=== PATIENT | female | born 1970 ===

== ENCOUNTER 2018-06-28 19:47 | Outpatient (REF) | payer MEDICAID, SELFPAY ==
[2018-06-28 20:36] LABS: Anion Gap 6.7 mmol/L (3-11); BUN 18 mg/dL (7-18); CO2 30.3 mmol/L (21.0-32.0); CREATININE 0.99 mg/dL (0.55-1.02); Calcium 8.4 mg/dL (8.5-10.1); Chloride 99 mmol/L (98-107); Glucose 338 mg/dL (70-100); Potassium 4.1 mmol/L (3.5-5.1); Sodium 136 mmol/L (136-145)
== END 2018-06-28 20:07 ==
LOC: LBN 19:47
PROVIDERS: Visit Provider Family Medicine
DX: E11.9 Type 2 diabetes mellitus without complications (principal)
CPT/HCPCS: 80048; 87077; 87070; 87205

== ENCOUNTER 2018-07-13 19:26 | Emergency (ER) | payer MEDICAID, SELFPAY ==
[2018-07-13 19:31] VITALS: BP 122/84; PULSE 91; RESP 16; TEMP 36.9; O2SAT 92
[2018-07-13 20:49] LABS: Abs Immature Grans 0.03 k/cumm (0.0-0.09); Absolute Basophil Count 0.02 k/cumm (0.0-0.2); Absolute Eosinophil Count 0.43 k/cumm (0.0-0.7); Absolute Lymphocyte Count 1.93 k/cumm (1.2-3.4); Absolute Monocyte Count 0.72 k/cumm (0.11-0.7); Absolute Neutrophil Count 7.62 k/cumm (1.2-6.7); Basophils % 0.2; HCT 45.8 % (36.0-46.0); HGB 14.5 g/dL (12.0-15.5); Immature Grans % 0.3; Mean Corp. HGB Concentration 31.7 g/dL (32.0-36.0); Mean Corpuscular Volume 91.6 fL (80-95); Mean Platelet Volume 9.9 fL (8.0-11.0); Monocytes % 6.7; Neutrophils % 70.8; Platelet Count 283 x1000/uL (130-400); RBC Distribution Width 16.4 % (11.7-14.6); White Blood Cell Count 10.75 k/cumm (4.4-10.8)
--- NOTE | 2018-07-13 21:00 | W.ED.GENAD ---
Discharge Plan Disposition Patient Disposition: HOME Condition: Good Discharge Details Chief Complaint: Cellulitis Clinical Impression: Cellulitis of leg, right Primary Care Provider: Zenaida Garcia ED Provider: Jacobo Sanchez Home Meds and New Rx's Prescriptions: New clindamycin HCl 150 mg capsule 450 mg PO TID 10 Days Qty: 90 RF: 0 No Action potassium chloride [Klor-Con M20] 20 mEq Tablet,Er Particles/Crystals 20 meq PO TID RF: 0 torsemide 100 mg Tablet 100 mg PO BID RF: 0 spironolactone 50 mg Tablet 50 mg PO BID RF: 0 Discharge Instructions Instructions: Cellulitis (ED) Additional Instructions: Return tomorrow afternoon for reassessment of your infection as you may need admitted at that time. Return immediately to the emergency department for any significant worsening of symptoms, rapid progression of your infection, high persistent fevers. Referrals: [facility] Emergency Dept. [Outside] - 07/14/18 2:00 pm (Return to the emergency department tomorrow afternoon for reassessment) Medical Decision Making <Jacobo Sanchez NP - Last Filed: 07/13/18 22:17> Patient presenting to the emergency department for chief complaint of redness and swelling to right anterior mendez/ankle. She states that this started occurring yesterday and home [facility] the wound this morning which is seem to worsen. Patient has bilateral heel ulcerations due to morbid obesity. Patient was placed upon Bactrim for heel ulcerations approximately 7 days ago by podiatry for wound ulcerations. Patient states subjective chills yesterday but no fever, and states no other symptoms other than her chronic conditions. Patient states mild to moderate discomfort to right anterior mendez. Physical exam shows anterior lower leg erythema, warmth, tenderness. There is no weeping or oozing, no well-defined borders, no involvement of chronic wound heel ulceration that it appears trans-locating to anterior mendez. Patient otherwise appears well and in no signs of distress. This appears to be a cellulitic area to right anterior mendez. Patient also has no significant calf or inner thigh tenderness to suggest DVT. Patient was sent in by primary care provider who was concerned for possible failure of outpatient antibiotics given the patient was on Bactrim and developed this rash. They requested that patient have blood work and blood cultures drawn along with IV antibiotics. With assessment and looking and reviewing patient's medical history I do feel that labs are warranted along with blood cultures and IV antibiotics. Given patient's penicillin allergy and that patient was initially placed upon Bactrim which does not have full coverage for strep I do feel that clindamycin would be better choice as current cellulitis does not appear consistent with MRSA. Review of labs show no leukocytosis, no bandemia, and CMP at baseline for patient's chronic kidney disease and diabetes mellitus. Did call and speak with on-call doctor at patient's primary care office Dr. Clarke and she expressed concern for patient to be discharged which was my recommendation given no bed availability at our facility, patient not having any signs of systemic illness and being placed up on Bactrim which I feel is not the appropriate antibiotic, no leukocytosis. While I fully understand her concern given the patient had been on Bactrim for extended period of time and had developed cellulitis given above-mentioned findings I do feel that it is appropriate for be patient to be discharged home after receiving IV dose of clindamycin and started on clindamycin 450 mg every 8 hours. Patient also states that she does not want to be transferred to another facility as we have no current bed availability. We did agree upon plan of care for patient to return to emergency department tomorrow afternoon for reassessment to ensure that patient is not worsening and does not need admission at that time. Patient was agreeable to this plan as well. Patient was encouraged to take pictures of the wound this evening to be able to show emergency department provider tomorrow. After discussion of diagnosis and plan of care patient has no further needs, questions, or concerns and states clear understanding to return to the emergency department for any worsening symptoms. Medical Records Medical records reviewed: Yes I reviewed the patient's medical records. Lab Data Lab results reviewed: Yes I reviewed the patient's lab results. <Gerardo Segundo DO - Last Filed: 07/13/18 21:46> I was asked to come and assess the patient with my colleague Leonardo Sanchez for evaluation of cellulitis. This is a 47-year-old female who presents with 1 day history of cellulitis in her right lower extremity. She has a history of chronic ulcer, on her right foot because of this she takes regular Bactrim. The cellulitis is developed in spite of this. The patient was sent to the emergency department by her practitioner for further evaluation. On examination patient does have cellulitis in the right lower extremity there is no evidence of circumferential component. There is a line that was placed by practitioner prior to her arrival, cellulitis does not appear to extend significantly beyond this line. The patient states that it actually appears somewhat better than when she had initially assessed earlier today. Evaluation of the patient's laboratory workup demonstrates no evidence of leukocytosis. No bandemia, electrolytes are all within normal limits. Clinically the patient appears well, in no acute distress. Vital signs demonstrate normal vital signs with no evidence of fever, tachycardia, or hypotension. No evidence of SIRS or sepsis. Physical exam demonstrates evidence of erythema but no evidence of abscess, fluctuance, or significant firmness. No subcutaneous crepitus is noted. Pain is not out of proportion. No clinical signs or symptoms significant for a severe systemic infection, necrotizing fasciitis, or compartment syndrome. On my evaluation of the patient patient does appear clinically well. Because of the patient's chronic Bactrim use, I do feel that she was not being adequately treated for strep coverage. With no current clinic evidence of abscess, I think that strep is more likely organism over MRSA. At this time on our clinical evaluation it would appear that the patient's failure of outpatient therapy is secondary to improper antibiotic coverage rather than actual resistance to antibiotics and the appropriate antibiotic setting. We will give 1 dose of IV clindamycin here. We discussed with the patient admission versus discharge, currently there are no beds available in the hospital, the patient will be required to be transferred for admission for continued IV antibiotics. After discussion with the patient, the patient clearly states that she does not want to be transferred, and she would rather just be treated at home. I do feel that this is appropriate in the current clinical scenario with normal vital signs, normal laboratory workup, no signs of systemic infection, and a lack of appropriate antibiotic coverage for her current ailment. We will give 1 dose of clindamycin here, a prescription for oral clindamycin to go home with, and strict instructions for return in the emergency department tomorrow morning for reevaluation. At that time if the patient's cellulitis does not show any improvement, or she shows any systemic signs of infection we will re-discussed and readdress the options of potential need for admission and potentially transfer if it does appear clinically indicated at that time. At this time there appears to be no clinical indication for admission based on her current labs, vital signs, and current clinical picture at this time. I have extensively reviewed the treatment plan and discharge instructions with the patient and their family. I have addressed all patient concerns at this time. The patient and family was made aware of what symptoms to monitor for that would warrant a return to the emergency department. Discussed the plan with the patient and family, they demonstrate verbal understanding and agreement with our assessment and plan at this time. HPI <Jacobo Sanchez NP - Last Filed: 07/13/18 22:17> General Mode of arrival: wheelchair. Date/Time Provider Initiated Documentation: 07/13/18 19:34. Limitations to Documentation: no limitations. Information obtained by: patient, family, RN notes reviewed and old records reviewed. History of Present Illness 47 year old F presents to the emergency department with the chief complaint of Pain swelling redness right anterior mendez, described as moderate, with intensity rated at 6. Quality is described as dull, and is localized to the lower extremity. Patient reports no radiation. Patient started experiencing this day(s) (1) and it has been constant. No relieving factors improve symptom(s), No exacerbating factors reported . Patient notes no other symptoms.. Patient did receive the following treatments prior to arrival, none Related Data Home Medications Medication Instructions Recorded Confirmed clindamycin HCl 450 mg PO TID 10 Days #90 cap 07/13/18 potassium chloride [Klor-Con M20] 20 meq PO TID 07/13/18 07/13/18 spironolactone 50 mg PO BID 07/13/18 07/13/18 torsemide 100 mg PO BID 07/13/18 07/13/18 Previous Rx's Medication Instructions Recorded clindamycin HCl 450 mg PO TID 10 Days #90 cap 07/13/18 Allergies Allergy/AdvReac Type Severity Reaction Status Date / Time bupropion [From Wellbutrin] Allergy Unverified 07/13/18 19:39 Penicillins Allergy Unverified 07/13/18 19:39 tolnaftate Allergy Unverified 07/13/18 19:49 General Stated Complaint: Cellulitis VERONICA: 4 Review of Systems <Jacobo Sanchez NP - Last Filed: 07/13/18 22:17> Constitutional Reports chills, Denies fever(s), Reports headache(s) (yesterday) and Denies night sweats ENT Reports headache(s) (yesterday) Cardiovascular Denies chest pain, Reports leg ulcers, Reports leg edema and Denies dyspnea Respiratory Denies cough and Denies dyspnea Integumentary/Breasts Reports as per HPI and Reports erythema Neurologic Reports headache(s) (yesterday) Exam <Jacobo Sanchez NP - Last Filed: 07/13/18 22:17> Const General: cooperative, comfortable, no acute distress and not diaphoretic Nutritional Appearance: obese morbidly obese Orientation: alert, awake and oriented x3 Limitations: mental status not altered Resp Effort & Inspection: normal respiratory effort and able to speak in complete sentences Auscultation: clear to auscultation bilaterally Cardio Rate: regular rate Rhythm: regular rhythm Heart Sounds: S1 normal and S2 normal Extrem Right lower extremity: normal capillary refill, edema Details: non-pitting, lower leg Details: erythema Location: of the distal lower leg Location: anteriorly and tenderness Location: not of the posterior calf and foot Details: vascular exam Details: dorsalis pedis pulse present, posterior tibial pulse present and normal capillary refill and other (Heel ulceration with appearance of well-healing and no significant surrounding erythema) Left lower extremity: normal capillary refill and edema Details: non-pitting Course <Jacobo Sanchez NP - Last Filed: 07/13/18 22:17> Vital Signs Pulse 91 H 07/13/18 19:31 Respiratory Rate 16 07/13/18 19:31 Blood Pressure 122/84 07/13/18 19:31 Pulse Oximetry 92 L 07/13/18 19:31 Temperature Source Temporal Artery Scan 07/13/18 19:31 Pulse 91 H 07/13/18 19:31 Respiratory Rate 16 07/13/18 19:31 Respiratory Effort 07/13/18 19:34 Blood Pressure 122/84 07/13/18 19:31 Blood Pressure Position Sitting 07/13/18 19:31 Pulse Oximetry 92 L 07/13/18 19:31 Oxygen Delivery Method Room Air 07/13/18 19:31 Oxygen Flow Rate 0 07/13/18 19:31 Pain Level 9 07/13/18 19:31 Lab/Test Results Lab/Test Results: 07/13/18 20:40 Blood Blood Culture - Pending 07/13/18 20:24 Blood Blood Culture - Pending Laboratory Tests Range/Units 07/13/18 20:40 WBC (4.4-10.8) k/cumm 10.75 RBC (4.00-5.20) m/cumm 5.00 Hgb (12.0-15.5) g/dL 14.5 Hct (36.0-46.0) % 45.8 MCV (80-95) fL 91.6 MCH (27.0-33.0) pg 29.0 MCHC (32.0-36.0) g/dL 31.7 L RDW (11.7-14.6) % 16.4 H Plt Count (130-400) x1000/uL 283 MPV (8.0-11.0) fL 9.9 Immature Gran % 0.3 Neutrophils % 70.8 Lymphocytes % 18.0 Monocytes % 6.7 Eosinophils % 4.0 Basophils % 0.2 Absolute Neutrophils (1.2-6.7) k/cumm 7.62 H Absolute Lymphocytes (1.2-3.4) k/cumm 1.93 Absolute Monocytes (0.11-0.7) k/cumm 0.72 H Absolute Eosinophils (0.0-0.7) k/cumm 0.43 Absolute Basophils (0.0-0.2) k/cumm 0.02
[2018-07-13 21:04] LABS: ALT 16 U/L (12-78); AST 11 U/L (15-37); Albumin 2.9 g/dL (3.4-5.0); Alkaline Phosphatase 101 U/L (46-116); Anion Gap 9.2 mmol/L (3-11); BUN 14 mg/dL (7-18); Bilirubin, Total 0.3 mg/dL (0.2-1.0); CO2 27.8 mmol/L (21.0-32.0); CREATININE 1.22 mg/dL (0.55-1.02); Calcium 8.8 mg/dL (8.5-10.1); Chloride 99 mmol/L (98-107); Estimated GFR 47.24 (mL/min/1.73m2); Glucose 177 mg/dL (70-100); Potassium 3.8 mmol/L (3.5-5.1); Sodium 136 mmol/L (136-145); Total Protein 8.8 g/dL (6.4-8.2)
[2018-07-13] MEDS: CLINDAMYCIN 600 MG/50 ML BAG 100 MG IVPB (21:35)
[2018-07-13] MEDS: Clindamycin 150 MG CAP 900 MG PO (22:12)
== END 2018-07-13 22:18 | disposition home or self-care (01) ==
PROVIDERS: Emergency Provider Nurse Practitioner Family; PCP Family Medicine
DX: L03.115 Cellulitis of right lower limb (principal); E11.22 Type 2 diabetes mellitus with diabetic chronic kidney disease; I12.9 Hypertensive chronic kidney disease with stage 1 through stage 4 chronic kidney disease, or unspecified chronic kidney disease; N18.4 Chronic kidney disease, stage 4 (severe); J44.9 Chronic obstructive pulmonary disease, unspecified; F17.210 Nicotine dependence, cigarettes, uncomplicated
CPT/HCPCS: 36415; 80053; 87040; 96365; 99284; 85025

== ENCOUNTER 2018-07-14 14:02 | Emergency (ER) | payer MEDICAID, SELFPAY ==
[2018-07-14 14:06] VITALS: BP 131/65; PULSE 73; RESP 18; TEMP 36.7; O2SAT 91
--- NOTE | 2018-07-14 14:12 | ED.GENADUL_ITS ---
Discharge Plan Disposition Patient Disposition: HOME Condition: Stable Discharge Details Chief Complaint: Recheck Clinical Impression: Cellulitis of leg, right Primary Care Provider: Zenaida Garcia ED Provider: Geo Austin Home Meds and New Rx's Prescriptions: Continue albuterol sulfate 2.5 mg /3 mL (0.083 %) Solution For Nebulization 1 inh Inhalation PRN (Reason: Wheezing) RF: 0 aspirin 325 mg Tablet 1 tab PO DAILY RF: 0 ascorbic acid (vitamin C) 500 mg Tablet 1 tab PO BID RF: 0 albuterol sulfate [ProAir HFA] 90 mcg/actuation Hfa Aerosol Inhaler 2 puff Inhalation Q4H PRN PRNRF: 0 budesonide-formoterol [Symbicort] 160-4.5 mcg/actuation Hfa Aerosol Inhaler 2 puff Inhalation DAILY RF: 0 No Action potassium chloride [Klor-Con M20] 20 mEq Tablet,Er Particles/Crystals 20 meq PO TID RF: 0 torsemide 100 mg Tablet 100 mg PO BID RF: 0 spironolactone 50 mg Tablet 50 mg PO BID RF: 0 clindamycin HCl 150 mg capsule 450 mg PO TID 10 Days Qty: 90 RF: 0 ketoconazole 2 % Shampoo Topical DAILY RF: 0 insulin glargine [Lantus U-100 Insulin] 100 unit/mL Solution 70 unit subcut BID RF: 0 simvastatin 40 mg Tablet 1 tab PO DAILY RF: 0 trazodone 150 mg Tablet 1 tab PO HS RF: 0 nystatin 100,000 unit/gram Cream Topical TID RF: 0 folic acid 1 mg Tablet 1 tab PO DAILY RF: 0 topiramate 200 mg Tablet 1 tab PO BID RF: 0 ranitidine HCl 150 mg Capsule 1 tab PO BID RF: 0 ergocalciferol (vitamin D2) 50,000 unit Capsule 1 tab PO QWEEK RF: 0 collagenase clostridium histo. [Santyl] 250 unit/gram Ointment Topical DAILY RF: 0 topiramate [Topamax] 100 mg Tablet 100 mg PO BID RF: 0 insulin aspart U-100 [Novolog Flexpen U-100 Insulin] 100 unit/mL Insulin Pen RF: 0 duloxetine [Cymbalta] 60 mg Capsule,Delayed Release(Dr/Ec) 1 tab PO BID RF: 0 ferrous gluconate 324 mg (36 mg iron) Tablet 1 tab PO BID RF: 0 pregabalin [Lyrica] 50 mg Capsule 1 tab PO BID PRN (Reason: Pain) RF: 0 Discharge Instructions Instructions: Cellulitis (ED), Lymphedema (ED) Discharge Data Discharge Physician: Geo Austin Medical Decision Making Patient comes in today for recheck of right lower extremity. She was seen yesterday in the ED and had been on bactrim for right lower leg cellulitis and was placed on clindamycin last night. She came back today for recheck of the area. The size of the redness has decreased in size so seems to be improving. No crepitus or severe pain or fevers so doubt sepsis or nec fasc at this time. It is not warm to touch and given her legs are chronically swollen I suspect this could be lymphedema. Will d/c home, return precautions given and advised f/ u with pcp within 1-2 weeks Differential Diagnosis cellulitis, lymphedema HPI General Mode of arrival: ambulatory . Date/Time Provider Initiated Documentation: 07/14/18 14:03 . Limitations to Documentation: no limitations . Information obtained by: patient . History of Present Illness 47 year old F presents to the emergency department with the chief complaint of recheck of right leg redness, described as mild, with intensity rated at 2. Quality is described as burning, and is localized to the right and lower extremity. Patient reports no radiation. No relieving factors improve symptom(s), No exacerbating factors reported . Patient notes no other symptoms.. Related Data Home Medications Medication Instructions Recorded Confirmed albuterol sulfate 1 inh INHALATION PRN 07/13/18 07/13/18 albuterol sulfate [ProAir HFA] 2 puff INHALATION Q4H PRN PRN 07/13/18 07/13/18 ascorbic acid (vitamin C) 1 tab PO BID 07/13/18 07/13/18 aspirin 1 tab PO DAILY 07/13/18 07/13/18 budesonide-formoterol [Symbicort] 2 puff INHALATION DAILY 07/13/18 07/13/18 clindamycin HCl 450 mg PO TID 10 Days #90 cap 07/13/18 collagenase clostridium histo. TOPICAL DAILY 07/13/18 [Santyl] duloxetine [Cymbalta] 1 tab PO BID 07/13/18 07/13/18 ergocalciferol (vitamin D2) 1 tab PO QWEEK 07/13/18 07/13/18 ferrous gluconate 1 tab PO BID 07/13/18 07/13/18 folic acid 1 tab PO DAILY 07/13/18 07/13/18 insulin aspart U-100 [Novolog 07/13/18 07/13/18 Flexpen U-100 Insulin] insulin glargine [Lantus U-100 70 unit SUBCUT BID 07/13/18 07/13/18 Insulin] ketoconazole TOPICAL DAILY 07/13/18 nystatin TOPICAL TID 07/13/18 potassium chloride [Klor-Con M20] 20 meq PO TID 07/13/18 07/13/18 pregabalin [Lyrica] 1 tab PO BID PRN 07/13/18 07/13/18 ranitidine HCl 1 tab PO BID 07/13/18 07/13/18 simvastatin 1 tab PO DAILY 07/13/18 07/13/18 spironolactone 50 mg PO BID 07/13/18 07/13/18 topiramate 1 tab PO BID 07/13/18 07/13/18 topiramate [Topamax] 100 mg PO BID 07/13/18 07/13/18 torsemide 100 mg PO BID 07/13/18 07/13/18 trazodone 1 tab PO HS 07/13/18 07/13/18 Previous Rx's Medication Instructions Recorded clindamycin HCl 450 mg PO TID 10 Days #90 cap 07/13/18 Allergies Allergy/AdvReac Type Severity Reaction Status Date / Time bupropion [From Wellbutrin] Allergy Unverified 07/14/18 14:14 Penicillins Allergy Unverified 07/14/18 14:14 tolnaftate Allergy Unverified 07/14/18 14:14 General Stated Complaint: Recheck VREONICA: 4 Review of Systems Review of Systems All systems reviewed & are unremarkable except as noted in HPI and below Constitutional Denies chills, Denies fever(s) and Denies weakness ENT Denies change in voice Cardiovascular Denies chest pain and Denies dyspnea Respiratory Denies dyspnea Gastrointestinal Denies abdominal pain, Denies nausea and Denies vomiting Genitourinary Denies dysuria Integumentary/Breasts Denies rash Neurologic Denies weakness Psychiatric Denies depression Allergic/Immunologic Reports urticaria [facility] Medical History CKD (chronic kidney disease) stage 4, GFR 15-29 ml/min (Acute) COPD with hypoxia (Acute) Diabetic peripheral neuropathy (Acute) Diastolic heart failure (Acute) Left ventricular hypertrophy (Acute) Morbid obesity (Acute) COPD (chronic obstructive pulmonary disease) (Chronic) Diabetes (Chronic) Hypertension (Chronic) Social History Smoking/Tobacco Use Status: Current every day Exam Const General: no acute distress Orientation: alert HENMT Head: normal to inspection Ears: external ears normal General nose exam: external nose normal Mouth: moist mucous membranes Eyes General: appearance normal, both eyes and all related structures Neck Neck: normal visual inspection Resp Effort & Inspection: normal respiratory effort and able to speak in complete sentences Cardio Rate: regular rate Skin General skin exam: other (3x5cm area of redness of medial right lower extremity that is decreased in size from yesterday per drawing placed on pt, no severe pain, not warm to touch ) Neuro General: alert and oriented x3 Extrem General: full ROM, normal capillary refill and other (both lower extremities with edema of both legs that is chronic per pt) Psych Mental Status: mental status grossly normal Course Vital Signs Temperature 36.7 C 07/14/18 14:06 Pulse 73 07/14/18 14:06 Respiratory Rate 18 07/14/18 14:06 Blood Pressure 131/65 07/14/18 14:06 Pulse Oximetry 91 L 07/14/18 14:06 Temperature 36.7 C 07/14/18 14:06 Temperature Source Temporal Artery Scan 07/14/18 14:06 Pulse 73 07/14/18 14:06 Respiratory Rate 18 07/14/18 14:06 Blood Pressure 131/65 07/14/18 14:06 Blood Pressure Position Sitting 07/14/18 14:06 Pulse Oximetry 91 L 07/14/18 14:06 Oxygen Delivery Method Room Air 07/14/18 14:06 Oxygen Flow Rate 0 07/14/18 14:06
--- NOTE | 2018-07-14 14:57 | PDOC.ERCMPRO ---
Care Management Progress Note 07/14-This CM was asked to see Chery as she is looking for a new PCP provider. Met with Chery and she stated she was living in [place] but now lives in [place]. Her PCP is at [facility]. Chery states she does not have the transportation or funds to have a PCP in [place] and would like to switch providers. This CM recommended they go to [facility] to sign medical record release paperwork. Chery will also need a two week f/u from the ED. This CM recommended that while she was at [facility] to ask if they would see her for an ED f/u appt. This CM called [facility] and spoke with Codi. Codi stated that they could see her for a f/u and she will let the front end staff know to schedule her and assist with medical records release. This CM gave Chery contact information if further assistance is needed.
--- NOTE | 2018-07-14 15:03 | CMPROGNOTE_ITS ---
Care Management Progress Note 07/14-This CM was asked to see Chery as she is looking for a new PCP provider. Met with Chery and she stated she was living in [place] but now lives in [place]. Her PCP is at [facility]. Chery states she does not have the transportation or funds to have a PCP in [place] and would like to switch providers. This CM recommended they go to [facility] to sign medical record release paperwork. Chery will also need a two week f/u from the ED. This CM recommended that while she was at [facility] to ask if they would see her for an ED f/u appt. This CM called [facility] and spoke with Codi. Codi stated that they could see her for a f/u and she will let the front end staff know to schedule her and assist with medical records release. This CM gave Chery contact information if further assistance is needed.
== END 2018-07-14 14:36 | disposition home or self-care (01) ==
PROVIDERS: Emergency Provider Emergency Medicine; PCP Family Medicine
DX: L03.115 Cellulitis of right lower limb (principal); E11.22 Type 2 diabetes mellitus with diabetic chronic kidney disease; I12.9 Hypertensive chronic kidney disease with stage 1 through stage 4 chronic kidney disease, or unspecified chronic kidney disease; N18.4 Chronic kidney disease, stage 4 (severe); J44.9 Chronic obstructive pulmonary disease, unspecified; F17.210 Nicotine dependence, cigarettes, uncomplicated
CPT/HCPCS: 99281

== ENCOUNTER 2018-07-20 11:43 | Outpatient (REF) | payer MEDICAID, SELFPAY ==
[2018-07-20 12:53] LABS: Anion Gap 6.4 mmol/L (3-11); BUN 10 mg/dL (7-18); CO2 28.6 mmol/L (21.0-32.0); CREATININE 0.92 mg/dL (0.55-1.02); Calcium 8.8 mg/dL (8.5-10.1); Chloride 103 mmol/L (98-107); Glucose 361 mg/dL (70-100); Potassium 5.1 mmol/L (3.5-5.1); Sodium 138 mmol/L (136-145)
== END 2018-07-20 12:03 ==
LOC: LBN 11:43
PROVIDERS: PCP Family Medicine; Visit Provider Family Medicine
DX: E11.621 Type 2 diabetes mellitus with foot ulcer (principal); M86.271 Subacute osteomyelitis, right ankle and foot
CPT/HCPCS: 80048; 83735

== ENCOUNTER 2018-08-08 14:17 | Outpatient (REF) | payer MEDICAID, SELFPAY ==
[2018-08-08 16:21] LABS: Abs Immature Grans 0.03 k/cumm (0.0-0.09); Absolute Basophil Count 0.02 k/cumm (0.0-0.2); Absolute Eosinophil Count 0.21 k/cumm (0.0-0.7); Absolute Lymphocyte Count 2.52 k/cumm (1.2-3.4); Basophils % 0.2; Eosinophils % 1.9; HCT 48.5 % (36.0-46.0); HGB 15.1 g/dL (12.0-15.5); Immature Grans % 0.3; Lymphocytes % 22.4; Mean Corp. HGB Concentration 31.1 g/dL (32.0-36.0); Mean Corpuscular Hemoglobin 28.7 pg (27.0-33.0); Mean Corpuscular Volume 92.2 fL (80-95); Mean Platelet Volume 10.7 fL (8.0-11.0); Monocytes % 5.2; Platelet Count 313 x1000/uL (130-400); RBC 5.26 m/cumm (4.00-5.20); RBC Distribution Width 16.2 % (11.7-14.6); White Blood Cell Count 11.25 k/cumm (4.4-10.8)
[2018-08-08 16:24] LABS: Absolute Monocyte Count 0.59 k/cumm (0.11-0.7); Absolute Neutrophil Count 7.88 k/cumm (1.2-6.7)
[2018-08-08 16:53] LABS: ALT 13 U/L (12-78); AST 11 U/L (15-37); Albumin 3.1 g/dL (3.4-5.0); Alkaline Phosphatase 108 U/L (46-116); Anion Gap 8.3 mmol/L (3-11); BUN 18 mg/dL (7-18); Bilirubin, Total 0.2 mg/dL (0.2-1.0); C-Reactive Protein 9.43 mg/dL (0.0-0.3); CO2 29.7 mmol/L (21.0-32.0); CREATININE 0.96 mg/dL (0.55-1.02); Calcium 9.5 mg/dL (8.5-10.1); Chloride 99 mmol/L (98-107); Glucose 209 mg/dL (70-100); Potassium 4.2 mmol/L (3.5-5.1); Sodium 137 mmol/L (136-145); Total Protein 7.9 g/dL (6.4-8.2)
== END 2018-08-08 14:37 ==
LOC: LBN 14:17
PROVIDERS: PCP Family Medicine; Visit Provider Podiatrist
DX: E11.621 Type 2 diabetes mellitus with foot ulcer (principal); L97.412 Non-pressure chronic ulcer of right heel and midfoot with fat layer exposed
CPT/HCPCS: 80053; 85025; 86140